=== PATIENT | male | born 1990 | race African-American/Black ===

== ENCOUNTER 2019-08-14 04:04 | Emergency (ER) | payer OTHER ==
[~2019-08-14] VITALS: Ht 172.7 cm; Wt 68.0 kg
[~2019-08-14 04:04] MED LIST: IBUPROFEN 600600 M1 PO
[2019-08-14] MEDS ORDERED: NOHOMEMEDICATIONS (04:08)
[2019-08-14] MEDS ORDERED: PENICILLIN VK500 M1 PO (04:46)
[2019-08-14] MEDS ORDERED: NAPROSYN500 MG PO (04:46)
[2019-08-14 04:55] VITALS: BP 119/69
== END 2019-08-14 04:56 | disposition home or self-care (01) ==
LOC: ER 04:04
DX: H92.01 Otalgia, right ear (principal); K02.9 Dental caries, unspecified; Z91.048 Other nonmedicinal substance allergy status